=== PATIENT | female | born 1990 | race American Indian/Alaskan Native ===

== ENCOUNTER 2017-01-26 20:43 | Emergency (ER) | payer SELFPAY ==
[2017-01-26 21:00] VITALS: BP 123/84
--- NOTE | 2017-01-26 23:50 | Emergency Department Report ---
HPI - General Chief Complaint: Skin/Abscess/Foreign Body Time Seen by Provider: 01/26/17 23:44 - HPI HPI: Patient is a 26-year-old female presents to ED complaining of swollen painful mass on both her arm. 2 days. Patient states she gets recurrent boils under her armpit. Patient denies any drainage from the armpits. She denies fevers/chills/nausea/vomiting. Patient states ball on the armpits are tender to touch. ED Past Medical Hx - Past Medical History Previous Medical History?: Yes Hx Hypertension: No Hx Congestive Heart Failure: No Hx Diabetes: Yes (with her ) Hx Deep Vein Thrombosis: No Hx Renal Disease: No Hx Sickle Cell Disease: No Hx Seizures: No Hx Asthma: No Hx COPD: No Hx HIV: No - Social History Smoking Status: Current Some Day Smoker - Medications Home Medications: Home Medications Medication Instructions Recorded Confirmed Last Taken Type Acetaminophen/Codeine [Tylenol 1 tab PO Q6H PRN #12 tab 01/26/17 Unknown Rx /Codeine # 3 tab] Sulfamethoxazole/Trimethoprim 1 each PO BID #14 tablet 01/26/17 Unknown Rx [Bactrim DS TAB] ED Review of Systems ROS: Stated complaint: SORES UNDER BOTH ARMS Other details as noted in HPI Constitutional: denies: chills, fever Eyes: denies: eye pain, eye discharge, vision change ENT: denies: ear pain, throat pain Respiratory: denies: cough, shortness of breath, wheezing Cardiovascular: denies: chest pain, palpitations Endocrine: no symptoms reported Gastrointestinal: denies: abdominal pain, nausea, diarrhea Genitourinary: denies: urgency, dysuria, discharge Musculoskeletal: denies: back pain, joint swelling, arthralgia Skin: denies: rash, lesions Neurological: denies: headache, weakness, paresthesias Psychiatric: denies: anxiety, depression Hematological/Lymphatic: denies: easy bleeding, easy bruising Physical Exam - Physical Exam Vital Signs: Vital Signs 01/26/17 20:55 Temperature 99.1 F Pulse Rate 76 Respiratory 18 Rate Blood Pressure 123/84 O2 Sat by Pulse 99 Oximetry Physical Exam: GENERAL: Alert and oriented x3, no apparent distress, Normal Gait, atraumatic. MOUTH:Mouth is well hydrated and without lesions. NECK: Supple. Non edematous, No carotid bruits. No lymphadenopathy or thyromegaly. LUNGS: Symetrical with respiration, No wheezing, no rales or crackles, CTAB. HEART: S1, S2 present, regular rate and rhythm without murmur, no rubs, no gallops. Non tender to palpation EXTREMITIES/MUSCULOSKELETAL: No cyanosis, clubbing, rash, lesions or edema. Full ROM bilaterally. Left arm. Shows [place] well-healed lesions. 1 cm raised tender nonfluctuant mass on left arm. Right arm. Shows [place] wall healed lesions nontender to palpation no masses. SKIN: Warm and dry, No lesions, No ulceration or induration present. ED Course Vital Signs 01/26/17 20:55 Temperature 99.1 F Pulse Rate 76 Respiratory 18 Rate Blood Pressure 123/84 O2 Sat by Pulse 99 Oximetry ED Medical Decision Making - Medical Decision Making 26-year-old female presents with adenitis of the left axillary ED course: Discussed the patient will need to take antibiotics for the next week. Discussed pain medication at home. Discussed the patient to take medication as prescribed. Patient on this instructions and states she will follow up as referred. Vital signs are normal she is in no acute distress. Discussed warm compresses 3 times a day with patient. Critical care attestation.: If time is entered above; I have spent that time in minutes in the direct care of this critically ill patient, excluding procedure time. ED Disposition Clinical Impression: Axillary adenitis Disposition: DC-01 TO HOME OR SELFCARE Is pt being admited?: No Does the pt Need Aspirin: No Condition: Stable Instructions: Adenitis (ED) Prescriptions: Acetaminophen/Codeine [Tylenol /Codeine # 3 tab] 1 tab PO Q6H PRN #12 tab PRN Reason: Pain Sulfamethoxazole/Trimethoprim [Bactrim DS TAB] 1 each PO BID #14 tablet Referrals: PRIMARY CARE, [Primary Care Provider] - 3-5 Days [facility] [Outside] - 3-5 Days [facility] [Outside] - 3-5 Days [facility] [Outside] - 3-5 Days [facility] [Outside] - 3-5 Days Forms: Accompanied Note, Work/School Release Form(ED) Time of Disposition: 23:48
== END 2017-01-27 00:27 | disposition home or self-care (01) ==
LOC: ED 20:43
DX: I88.9 Nonspecific lymphadenitis, unspecified (principal); F17.200 Nicotine dependence, unspecified, uncomplicated
CPT/HCPCS: 99282

== ENCOUNTER 2017-07-02 00:14 | Emergency (ER) | payer OTHER ==
[2017-07-02 00:21] VITALS: BP 156/104
[2017-07-02] MEDS ORDERED: PERCOCET 5/325 PO ONE (01:42)
[2017-07-02] MEDS ORDERED: CLEOCIN PO ONE (01:42)
[2017-07-02] MEDS ORDERED: TORADOL IM ONE (01:42)
--- NOTE | 2017-07-02 02:17 | Emergency Department Report ---
ED ENT HPI - General Chief complaint: Dental/Oral Stated complaint: TOOTHACHE Time Seen by Provider: 07/02/17 01:25 Source: patient Mode of arrival: Ambulatory Limitations: No Limitations - History of Present Illness Initial comments: 27-year-old female in no cystic and past medical history presents to the hospital with complains of right lower toothache. Pain is rated 9/10 aching and throbbing, with palpation showing. No relieving factors. Patient went to the dentist today but could not afford to have her teeth treated therefore she came to the ER. Reports of fever. - Related Data Previous Rx's Medication Instructions Recorded Last Taken Type Acetaminophen/Codeine [Tylenol 1 tab PO Q6H PRN #12 tab 01/26/17 Unknown Rx /Codeine # 3 tab] Sulfamethoxazole/Trimethoprim 1 each PO BID #14 tablet 01/26/17 Unknown Rx [Bactrim DS TAB] Clindamycin [Clindamycin CAP] 450 mg PO Q6HR 7 Days capsule 07/02/17 Unknown Rx HYDROcodone/APAP 5-325 [Amigo 1 each PO Q6HR PRN #20 tablet 07/02/17 Unknown Rx 5/325] Ibuprofen [Motrin] 800 mg PO Q8HR PRN #30 tablet 07/02/17 Unknown Rx Allergies Allergy/AdvReac Type Severity Reaction Status Date / Time No Known Allergies Allergy Verified 03/18/16 12:05 ED Dental HPI - General Chief complaint: Dental/Oral Stated complaint: TOOTHACHE Time Seen by Provider: 07/02/17 01:25 Source: patient Mode of arrival: Ambulatory Limitations: No Limitations - Related Data Previous Rx's Medication Instructions Recorded Last Taken Type Acetaminophen/Codeine [Tylenol 1 tab PO Q6H PRN #12 tab 01/26/17 Unknown Rx /Codeine # 3 tab] Sulfamethoxazole/Trimethoprim 1 each PO BID #14 tablet 01/26/17 Unknown Rx [Bactrim DS TAB] Clindamycin [Clindamycin CAP] 450 mg PO Q6HR 7 Days capsule 07/02/17 Unknown Rx HYDROcodone/APAP 5-325 [Amigo 1 each PO Q6HR PRN #20 tablet 07/02/17 Unknown Rx 5/325] Ibuprofen [Motrin] 800 mg PO Q8HR PRN #30 tablet 07/02/17 Unknown Rx Allergies Allergy/AdvReac Type Severity Reaction Status Date / Time No Known Allergies Allergy Verified 03/18/16 12:05 ED Review of Systems ROS: Stated complaint: TOOTHACHE Other details as noted in HPI Comment: All other systems reviewed and negative Other: Constitutional: No fevers chills Eyes: No eye pain visual changes ENT: As per HPI Neck: Denies pain Respiratory: Denies cough wheezing shortness of breath Cardiovascular: Denies chest pain, palpitations, syncope GI: Denies abdominal pain, nausea, vomiting, diarrhea : Denies dysuria, urinary frequency, or urgency Musculoskeletal: Denies back pain Skin: Denies rash, lesions, erythema Neurologic: Denies headache, numbness, weakness Psychiatric: Denies suicidal ideation, hallucinations ED Past Medical Hx - Past Medical History Previous Medical History?: No Hx Hypertension: No Hx Congestive Heart Failure: No Hx Diabetes: Yes (with her ) Hx Deep Vein Thrombosis: No Hx Renal Disease: No Hx Sickle Cell Disease: No Hx Seizures: No Hx Asthma: No Hx COPD: No Hx HIV: No - Surgical History Past Surgical History?: Yes Additional Surgical History: tonsils, ectopic - Social History Smoking Status: Never Smoker Substance Use Type: None - Medications Home Medications: Home Medications Medication Instructions Recorded Confirmed Last Taken Type Acetaminophen/Codeine [Tylenol 1 tab PO Q6H PRN #12 tab 01/26/17 Unknown Rx /Codeine # 3 tab] Sulfamethoxazole/Trimethoprim 1 each PO BID #14 tablet 01/26/17 Unknown Rx [Bactrim DS TAB] Clindamycin [Clindamycin CAP] 450 mg PO Q6HR 7 Days capsule 07/02/17 Unknown Rx HYDROcodone/APAP 5-325 [Amigo 1 each PO Q6HR PRN #20 tablet 07/02/17 Unknown Rx 5/325] Ibuprofen [Motrin] 800 mg PO Q8HR PRN #30 tablet 07/02/17 Unknown Rx ED Physical Exam - General Limitations: No Limitations - Other Other exam information: General: No limitations, patient is alert in no acute distress Head exam: Atraumatic, normocephalic Eyes exam: Normal appearance ENT: Moist mucous membrane, normal oropharynx. No facial swelling. Tenderness to percussion of all premolar and molar teeth on the right lower jaw. No stated thumb swelling. Neck exam: Normal inspection, full range of motion, no meningismus nontender Respiratory exam: Clear to auscultation bilateral, no wheezes, rales, crackles Cardiovascular: Normal rate and rhythm, normal heart sounds Abdomen: Soft, nondistended, and nontender, with normal bowel sounds, no rebound, or guarding Extremity: Full range of motion normal inspection no deformity Back: Normal Inspection, full range of motion, no tenderness Neurologic: Alert, oriented x3, cranial nerves intact, no motor or sensory deficit Psychiatric: normal affect, normal mood Skin: Warm, dry, intact ED Course Vital Signs 07/02/17 07/02/17 00:18 00:20 Temperature 98.4 F 98.4 F Pulse Rate 92 H 96 H Respiratory 18 17 Rate Blood Pressure 156/104 156/104 O2 Sat by Pulse 99 99 Oximetry - Reevaluation(s) Reevaluation #1: 07/02/17 02:15 Percocet and Toradol given for pain ED Medical Decision Making - Medical Decision Making Patient will be treated symptomatically for pain and currently with antibiotic. Follow up with dentist encouraged. Patient plans to follow up when she gets paid - Differential Diagnosis fracture tooth, dental caries, dental abscess Critical Care Time: No Critical care attestation.: If time is entered above; I have spent that time in minutes in the direct care of this critically ill patient, excluding procedure time. ED Disposition Clinical Impression: Pain, dental Disposition: DC- TO HOME OR SELFCARE Is pt being admited?: No Does the pt Need Aspirin: No Condition: Stable Instructions: Toothache (ED) Additional Instructions: Take medications as prescribed. Return if symptoms worsen as indicated by your discharge instructions. Follow up with your dentist for further treatment. Prescriptions: Clindamycin [Clindamycin CAP] 450 mg PO Q6HR 7 Days capsule HYDROcodone/APAP 5-325 [Amigo 5/325] 1 each PO Q6HR PRN #20 tablet PRN Reason: Pain Ibuprofen [Motrin] 800 mg PO Q8HR PRN #30 tablet PRN Reason: Pain Referrals: your, dentist [Other] - 3-5 Days Time of Disposition: 02:18
== END 2017-07-02 02:32 | disposition home or self-care (01) ==
LOC: ED 00:14
DX: K08.89 Other specified disorders of teeth and supporting structures (principal); E11.9 Type 2 diabetes mellitus without complications
CPT/HCPCS: 96372; 99282; J1885